=== PATIENT | male | born 1965 | race Caucasian/White ===

== ENCOUNTER 2020-11-16 15:25 | Emergency (ER) | payer BC ==
[~2020-11-16] VITALS: Ht 190 cm; Wt 107.0 kg
[~2020-11-16 15:25] MED LIST: CYCL10TA9 PO; HYDR1TAB PO; IBP800T PO; NAPR-243; NAPR-243 PO; SULF1TAB35 PO; TRM50T PO
--- NOTE | 2020-11-16 17:31 | ED EENT ---
History of Present Illness General Chief Complaint: Ear Problems Stated Complaint: R EAR IMPACTED Nursing Triage Note: ARRIVED VIA AMB WITH COMPLAINTS OF RIGHT EAR PAIN. STATES IT HAS FELT FULL X1 WEEK. WAS SEEN A [facility]. History of Present Illness Date Seen by Provider: Nov 16, 2020 Time Seen by Provider: 15:30 Initial Comments 55-year-old male referred here from [facility] to have his right ear irrigated. He reports going there a day ago and was told to use Debrox drops and then return for ear wax removal. They were unable to get the wax out and referred him here. He denies any chronic history of cerumen impaction. Denies any other complaints. He does state that his hearing is slightly muffled on the right ear. Location: ear (R) Prearrival Treatment: over the counter meds Associated Symptoms: denies symptoms Allergies and Home Medications Allergies Coded Allergies: No Known Drug Allergies (Unverified , 03/02/11) Home Medications No Active Prescriptions or Reported Meds Patient Home Medication List Home Medication List Reviewed: Yes Review of Systems Review of Systems Constitutional: no symptoms reported, see HPI Ears: See HPI, Other (Impacted cerumen right ear) All Other Systems Reviewed Negative Unless Noted: Yes Past Emasmjs-Gyffts-Qyooyz Hx Past Med/Social Hx: Reviewed Nursing Past Med/Soc Hx Patient Social History Type Used: Cigarettes Recent Infectious Disease Expo: No Past Medical History Surgeries: No (wisdom teeth) Respiratory: No Cardiac: No Neurological: No Reproductive Disorders: No Sexually Transmitted Disease: No Gastrointestinal: No Musculoskeletal: No (lipomas) Endocrine: No Cancer: No Psychosocial: No Integumentary: No Blood Disorders: No Physical Exam Vital Signs Vital Signs - First Documented 11/16/20 15:30 Temp 36.0 Pulse 77 Resp 16 B/P (MAP) 131/78 (95) Pulse Ox 98 O2 Delivery Room Air Height, Weight, BMI Height: 6'3.00" Weight: 215lbs. 1.0oz. [id number]; 29.00 BMI Method:Estimated General Appearance: WD/WN, no apparent distress Ears: right ear auricle normal, right ear other (cerumen impaction to right ear canal) Nose: normal inspection; No active bleeding, No discharge Mouth/Throat: normal mouth inspection, pharynx normal Cardiovascular: normal peripheral pulses, regular rate, rhythm Respiratory: chest non-tender, lungs clear Neurologic/Psychiatric: no motor/sensory deficits, alert, normal mood/affect, oriented x 3 Skin: normal color, warm/dry Progress/Results/Core Measures Results/Orders Vital Signs/I&O 11/16/20 11/16/20 15:30 17:32 Temp 36.0 36.0 Pulse 77 77 Resp 16 16 B/P (MAP) 131/78 (95) 131/78 (95) Pulse Ox 98 98 O2 Delivery Room Air Blood Pressure Mean: 95 Progress Progress Note : Time: 15:30 Progress Note Patient seen and evaluated, irrigated ear with syringe. Minimal return. Tried to use ear tools to remove, minimal removed. Placed peroxide in ear and let sit for 10 min with right ear up. 1730 Minimal return when ear irrigated. Recommended he continue Debrox drops and irrigate the ear at home. Discharge instructions and return precautions reviewed with the patient. All questions answered. Departure Impression Primary Impression: Impacted cerumen Qualified Codes: H61.21 - Impacted cerumen, right ear Disposition: HOME, SELF-CARE Condition: Improved Departure-Patient Inst. Decision time for Depature: 17:30 Referrals: [facility] (PCP) Primary Care Physician MARISELA AGUILAR (Family) Primary Care Physician Patient Instructions: Ear Wax Impaction (DC) Add. Discharge Instructions: Continue to instill the Debrox drops every night at bedtime for the next 3 days. On Sunday you can use [employer] Earrrigate to flush the ear wax in the shower. If symptoms continue to persist, follow-up with your primary care provider. Return to the emergency department for new, urgent healthcare needs. All discharge instructions reviewed with patient and/or family. Voiced understanding. Scripts No Active Prescriptions or Reported Meds Copy Copies To 1: NAVOJT MUÑIZ AMY ARNP Nov 16, 2020 17:31
[2020-11-16 17:32] VITALS: BP 131/78
== END 2020-11-16 17:32 | disposition home or self-care (01) ==
LOC: ER 15:26
DX: H61.21 Impacted cerumen, right ear (principal)
CPT/HCPCS: 99282

== ENCOUNTER → 2021-01-13 | Outpatient (CLI) | payer OTHER, BC ==
[~2021-01-13] MED LIST changes: -SULF1TAB35 PO; +SULF1TAB38 PO
--- NOTE | 2021-01-13 16:26 | Diagnostic Imaging Report ---
INDICATION: Lateral foot pain EXAMINATION: Right foot at 4:10 p.m. Three views were obtained. COMPARISON: There is no prior study available for comparison. There is no fracture, dislocation or acute bony abnormality evident. On the oblique view, there is a well-circumscribed 18 mm calcific density in the soft tissues lying just lateral to the cuboid bone. This is felt to represent an accessory ossicle. There are only mild degenerative changes involving the foot. The Lisfranc joint seems well maintained. There may be mild soft tissue edema lateral to the head of the 5th metatarsal. There is no radiopaque foreign body identified. IMPRESSION: There is no evidence for an acute bony abnormality or for a radiopaque foreign body. Dictated by: Dictated on workstation # [id number]
== END ==
LOC: RAD 15:38
PROVIDERS: ATTEND Nurse Practitioner Family
DX: M79.671 Pain in right foot (principal)
CPT/HCPCS: 73630